=== PATIENT | female | born 1960 | race Caucasian/White ===

== ENCOUNTER 2017-12-20 05:18 | Inpatient (IN) | payer OTHER ==
[2017-12-20] MEDS ORDERED: Morphine 4 MG/ML Syringe IVPUSH PRN (06:13)
[2017-12-20] MEDS ORDERED: Sodium Chloride 0.9% 10 ML Syringe FLUSH PRN (06:13)
[2017-12-20] MEDS ORDERED: Aspirin 81 MG Tab.Chew PO ONE (06:13)
[2017-12-20] MEDS ORDERED: Ondansetron 4 MG/2 ML SDV IVPUSH ONE (06:16)
--- NOTE | 2017-12-20 06:19 | EDM.PDOC ---
<OfficerRaffaele - Last Filed: 12/20/17 06:15> ED HPI GENERAL MEDICAL PROBLEM - General Chief Complaint: Abdominal Pain Stated Complaint: VOMITING WITH PAIN UNDER RIGHT RIB AREA Time Seen by Provider: 12/20/17 06:07 Source of Information: Reports: Patient, RN Notes Reviewed History Limitations: Reports: No Limitations - History of Present Illness INITIAL COMMENTS - FREE TEXT/NARRATIVE: 57-year-old female presents to the emergency department day complaint of epigastric pain, she is a difficult historian. She states had this pain on and off for 3-4 months it does vary in location underneath her right breast to her left shoulder more in her abdominal region tonight she states the pain woke her up from sleep it is predominantly up into the chest she did have nausea and vomiting she does feel short of breath she denies any diaphoresis. Only past medical history is significant for endometrial cancer with total abdominal hysterectomy Abdominal Pain Score (Numeric/FACES): 6 - Related Data Allergies Allergy/AdvReac Type Severity Reaction Status Date / Time Penicillins Allergy Cannot Verified 12/20/17 05:49 Remember Home Meds: Home Meds NK [No Known Home Meds] 12/20/17 [History] Past Medical History HEENT History: Reports: Impaired Vision BEAUTY ADVISOR History: Reports: Endometriosis Oncologic (Cancer) History: Reports: Uterine Dermatologic History: Reports: Eczema - Infectious Disease History Infectious Disease History: Reports: Chicken Pox - Past Surgical History Female Surgical History: Reports: Hysterectomy, Salpingo-Oophorectomy Social & Family History - Tobacco Use Smoking Status *Q: Never Smoker - Caffeine Use Caffeine Use: Reports: Coffee - Recreational Drug Use Recreational Drug Use: No ED ROS GENERAL - Review of Systems Review Of Systems: See Below Constitutional: Reports: No Symptoms HEENT: Reports: No Symptoms Respiratory: Reports: Shortness of Breath. Denies: Cough, Sputum Cardiovascular: Reports: Chest Pain, Blood Pressure Problem GI/Abdominal: Reports: Abdominal Pain, Nausea, Vomiting : Reports: No Symptoms Musculoskeletal: Reports: No Symptoms Skin: Reports: No Symptoms Neurological: Reports: No Symptoms ED EXAM, GENERAL - Physical Exam Exam: See Below Free Text/Narrative:: General: Obese female, not in any distress, alert and oriented x3 HEENT: head is atraumatic normocephalic, eyes pupils equal round reactive to light, sclera clear no conjunctivitis appreciated. Ears tympanic membranes clear and smith landmarks and light reflex are present bilaterally canals are clear. Nose no septal deviation, nares are clear, no blood present. Mouth mucosa is moist and pink no erythema or exudate noted in soft palate, tongue is midline uvula is midline, dentition is intact. Neck: Supple no thyromegaly no tracheal deviation. Nodes: Cervical nodes subclavicular nodes nontender no palpable lymphadenopathy noted. Lungs: clear to auscultation bilaterally with symmetrical respirations, no adventitious noise appreciated. CV: Regular rate and rhythm S1 and S2 appreciated no murmurs rubs or gallops noted. Abdomen: Soft, tender epigastric region, obese, no palpable masses or organomegaly appreciated, no distention no guarding bowel sounds are present, . Neuro: Cranial nerves II through XII grossly intact Skin: Warm and dry, intact Extremities: No lower extremity edema appreciated, Course - Vital Signs Last Recorded V/S: Last Vital Signs Temp 97.7 F 12/20/17 05:59 Pulse 92 12/20/17 06:42 Resp 12 12/20/17 07:50 BP 126/84 12/20/17 07:50 Pulse Ox 99 12/20/17 07:50 - Orders/Labs/Meds Orders: Active Orders 24 hr Category Date Time Status Cardiac Monitoring [RC] .As Directed Care 12/20/17 06:13 Active EKG Documentation Completion [RC] ASDIRECTED Care 12/20/17 06:15 Active Peripheral IV Care [RC] . DIRECTED Care 12/20/17 06:15 Active Abdomen Pelvis w Cont [CT] Stat Exams 12/20/17 07:05 Taken Chest 1V Frontal [CR] Stat Exams 12/20/17 06:14 Taken CULTURE ANAEROBIC [RM] Routine Lab 12/20/17 10:45 Results CULTURE WOUND + SMEAR [RM] Routine Lab 12/20/17 10:45 Results Iopamidol [Isovue-300 (61%)] Med 12/20/17 07:11 Active 150 ml IV . DIRECTED PRN Ketamine [Ketalar] Med 12/20/17 10:00 Active 40 mg IV ASDIRECTED Morphine Med 12/20/17 06:13 Active 4 mg IVPUSH Q10M PRN Nitroglycerin [Nitrostat] Med 12/20/17 06:13 Active 0.4 mg SL Q5M PRN Ropivacaine [Naropin 0.5%] 59 ml Med 12/20/17 10:00 Active Dexamethasone 8 mg EPINEPHrine [Adrenalin] 0.4 mg Sodium Chloride 0.9% [Normal Saline] 18.6 ml NERVRT ASDIRECTED Sodium Chloride 0.9% [Normal Saline] 85 ml Med 12/20/17 07:15 Active IV ASDIRECTED Sodium Chloride 0.9% [Saline Flush] Med 12/20/17 06:13 Active 10 ml FLUSH ASDIRECTED PRN Peripheral IV Insertion Adult [OM.PC] Stat Oth 12/20/17 06:13 Ordered Saline Lock Insert [OM.PC] Stat Oth 12/20/17 06:13 Ordered EKG 12 Lead [EK] Stat Ther 12/20/17 06:14 Ordered Medication Orders Ropivacaine 59 ml/Dexamethasone 8 mg/Epinephrine HCl 0.4 mg/ Sodium Chloride 18.6 ml 0 ml NERVRT ASDIRECTED SHAHBAZ Last Admin: 12/20/17 10:03 Dose: 100 syringe Sodium Chloride (Normal Saline) 85 mls @ 3.5 mls/sec IV ASDIRECTED [facility] Last Admin: 12/20/17 07:42 Dose: 3.5 mls/sec Iopamidol (Isovue-300 (61%)) 150 ml IV . DIRECTED PRN PRN Reason: RADIOLOGY EXAM Stop: 12/21/17 07:12 Last Admin: 12/20/17 07:42 Dose: 150 ml Ketamine HCl (Ketalar) 40 mg IV ASDIRECTED [facility] Morphine Sulfate (Morphine) 4 mg IVPUSH Q10M PRN PRN Reason: Chest Pain Stop: 12/21/17 06:14 Last Admin: 12/20/17 06:44 Dose: 4 mg Nitroglycerin (Nitrostat) 0.4 mg SL Q5M PRN PRN Reason: Chest Pain Stop: 12/21/17 06:14 Last Admin: 12/20/17 06:35 Dose: 0.4 mg Admin: 12/20/17 06:30 Dose: 0.4 mg Sodium Chloride (Saline Flush) 10 ml FLUSH ASDIRECTED PRN PRN Reason: Keep Vein Open Last Admin: 12/20/17 06:28 Dose: 10 ml Labs: Laboratory Tests 08/26/18 08/26/18 Range/Units 06:25 06:25 WBC 7.7 (4.5-11.0) K/uL RBC 4.69 (3.30-5.50) M/uL Hgb 13.9 (12.0-15.0) g/dL Hct 42.2 (36.0-48.0) % MCV 90 (80-98) fL MCH 30 (27-31) pg MCHC 33 (32-36) % Plt Count 295 (150-400) K/uL Neut % (Auto) 81 H (36-66) % Lymph % (Auto) 11 L (24-44) % Surry % (Auto) 7 H (2-6) % Eos % (Auto) 0 L (2-4) % Baso % (Auto) 1 (0-1) % Sodium 141 (140-148) mmol/L Potassium 4.3 (3.6-5.2) mmol/L Chloride 105 (100-108) mmol/L Carbon Dioxide 28 (21-32) mmol/L Anion Gap 8.0 (5.0-14.0) mmol/L BUN 17 (7-18) mg/dL Creatinine 1.3 H (0.6-1.0) mg/dL Est Cr Clr Drug Dosing TNP Estimated GFR (MDRD) 42 L (>60) Glucose 133 H (74-106) mg/dL Calcium 9.0 (8.5-10.1) mg/dL Total Bilirubin 0.4 (0.2-1.0) mg/dL AST 24 (15-37) U/L ALT 40 (12-78) U/L Alkaline Phosphatase 77 (46-116) U/L Troponin I < 0.017 (0.000-0.056) ng/mL Total Protein 7.3 (6.4-8.2) g/dL Albumin 3.5 (3.4-5.0) g/dL Globulin 3.8 H (2.3-3.5) g/dL Albumin/Globulin Ratio 0.9 L (1.2-2.2) Lipase 112 (73-393) U/L Meds: Medications Generic Name Dose Route Start Last Admin Trade Name Freq PRN Reason Stop Dose Admin Ropivacaine 59 ml/ 0 ml 12/20/17 10:00 12/20/17 10:03 Dexamethasone 8 mg/ NERVRT 100 syringe Epinephrine HCl 0.4 mg/ Sodium ASDIRECTED SHAHBAZ Administration Chloride 18.6 ml Sodium Chloride 85 mls @ 3.5 mls/sec 12/20/17 07:15 12/20/17 07:42 Normal Saline IV 3.5 mls/sec ASDIRECTED SHAHBAZ Administration Iopamidol 150 ml 12/20/17 07:11 12/20/17 07:42 Isovue-300 (61%) IV 12/21/17 07:12 150 ml . DIRECTED PRN Administration RADIOLOGY EXAM Ketamine HCl 40 mg 12/20/17 10:00 Ketalar IV ASDIRECTED SHAHBAZ Morphine Sulfate 4 mg 12/20/17 06:13 12/20/17 06:44 Morphine IVPUSH 12/21/17 06:14 4 mg Q10M PRN Administration Chest Pain Nitroglycerin 0.4 mg 12/20/17 06:13 12/20/17 06:35 Nitrostat SL 12/21/17 06:14 0.4 mg Q5M PRN Administration Chest Pain Sodium Chloride 10 ml 12/20/17 06:13 12/20/17 06:28 Saline Flush FLUSH 10 ml ASDIRECTED PRN Administration Keep Vein Open Discontinued Medications Generic Name Dose Route Start Last Admin Trade Name Freq PRN Reason Stop Dose Admin Aspirin 324 mg 12/20/17 06:13 12/20/17 06:27 Aspirin PO 12/20/17 06:14 324 mg ONETIME ONE Administration Bupivacaine HCl/Epinephrine Bitart Confirm 12/20/17 08:58 12/20/17 10:10 Marcaine 0.5%/Epinephrine 1:200,000 Administered 12/20/17 08:59 20 ml Dose Administration 50 ml .ROUTE .STK-MED ONE Dexamethasone Confirm 12/20/17 09:12 Dexamethasone Administered 12/20/17 09:13 Dose 4 mg .ROUTE .STK-MED ONE Fentanyl Confirm 12/20/17 09:11 Sublimaze Administered 12/20/17 09:12 Dose 250 mcg .ROUTE .STK-MED ONE Fentanyl Confirm 12/20/17 11:01 Sublimaze Administered 12/20/17 11:02 Dose 100 mcg .ROUTE .STK-MED ONE Glycopyrrolate Confirm 12/20/17 09:12 Robinul Administered 12/20/17 09:13 Dose 1 mg .ROUTE .STK-MED ONE Lactated Ringer's 1,000 mls @ 999 mls/hr 12/20/17 07:05 12/20/17 07:48 Ringers, Lactated IV 12/20/17 08:05 999 mls/hr BOLUS ONE Administration Cefoxitin Sodium 2 gm/ Sodium 50 mls @ 100 mls/hr 12/20/17 08:24 12/20/17 08: 39 Chloride IV 12/20/17 08:53 100 mls/hr ONETIME ONE Administration Aztreonam 1,000 mg/ Sodium 50 mls @ 100 mls/hr 12/20/17 09:02 Chloride IV 12/20/17 09:31 ONETIME ONE Aztreonam/Dextrose 1 gm/ 50 mls @ 100 mls/hr 12/20/17 09:15 12/20/17 09:15 Premix IV 12/20/17 09:44 100 mls/hr ONETIME ONE Administration Lactated Ringer's Confirm 12/20/17 11:16 Ringers, Lactated Administered 12/20/17 11:17 Dose 1,000 mls @ as directed .ROUTE .STK-MED ONE Lactated Ringer's Confirm 12/20/17 11:16 Ringers, Lactated Administered 12/20/17 11:17 Dose 1,000 mls @ as directed .ROUTE .STK-MED ONE Neostigmine Methylsulfate Confirm 12/20/17 09:12 Neostigmine Administered 12/20/17 09:13 Dose 5 mg .ROUTE .STK-MED ONE Ondansetron HCl 4 mg 12/20/17 06:16 12/20/17 06:28 Zofran IVPUSH 12/20/17 06:17 4 mg ONETIME ONE Administration Ondansetron HCl Confirm 12/20/17 09:12 Zofran Administered 12/20/17 09:13 Dose 4 mg .ROUTE .STK-MED ONE Propofol Confirm 12/20/17 09:12 Diprivan 20 Ml Administered 12/20/17 09:13 Dose 200 mg .ROUTE .STK-MED ONE Rocuronium Jones Confirm 12/20/17 09:12 Zemuron Administered 12/20/17 09:13 Dose 50 mg .ROUTE .STK-MED ONE Succinylcholine Chloride Confirm 12/20/17 09:12 Quelicin Administered 12/20/17 09:13 Dose 200 mg .ROUTE .STK-MED ONE Departure - Departure Disposition: Admitted As Inpatient 64 Clinical Impression: Cholecystitis Abdominal pain Qualifiers: Abdominal location: upper abdomen, unspecified Qualified Code(s): R10.10 - Upper abdominal pain, unspecified <Juancho Rico - Last Filed: 12/20/17 11:36> Course - Re-Assessments/Exams Free Text/Narrative Re-Assessment/Exam: 12/20/17 09:02 Patient care except from Officer pending CT results. This did show cholelithiasis and likely cholecystitis. Discussed the results with Dr. Crockett, he'll see the patient admitted for the past, cholecystectomy. She was given 2 g of cefoxitin, followed by 1 g of Azactam prior to surgery. Departure - Departure Time of Disposition: 09:47 Condition: Fair
[2017-12-20] MEDS: Nitroglycerin 0.4 MG Tab.SL SL PRN ×2 (06:30→06:35)
[2017-12-20] MEDS ORDERED: Lactated Ringers 1,000 ML IV ONE (07:05)
[2017-12-20] MEDS ORDERED: Iopamidol 612 MG/ML 150 ML Bottle IV PRN (07:11)
[2017-12-20] MEDS ORDERED: cefOXitin 2 GM in Sodium Chloride 0.9% 50 ML IV ONE (08:24)
[2017-12-20] MEDS ORDERED: Bupivacaine 0.5%/EPINEPHrine 1:200,000 50 ML MDV ONE (08:58)
[2017-12-20] MEDS ORDERED: fentaNYL 250 MCG/5 ML SDV ONE (09:11)
[2017-12-20] MEDS ORDERED: Propofol 200 MG/20 ML SDV ONE (09:12)
[2017-12-20] MEDS ORDERED: Dexamethasone 4 MG/ML SDV ONE (09:12)
[2017-12-20] MEDS ORDERED: Glycopyrrolate 0.2 MG/ML 5 ML MDV ONE (09:12)
[2017-12-20] MEDS ORDERED: Neostigmine Methylsulfate 1 MG/ML 5 ML Syringe ONE (09:12)
[2017-12-20] MEDS ORDERED: Ondansetron 4 MG/2 ML SDV ONE (09:12)
[2017-12-20] MEDS ORDERED: Rocuronium 50 MG/5 ML Vial ONE (09:12)
[2017-12-20] MEDS ORDERED: Succinylcholine 200 MG/10 ML MDV ONE (09:12)
[2017-12-20] MEDS ORDERED: Aztreonam/Dextrose-Water 1 GM in Premix Bag 1 BAG IV ONE (09:15)
[2017-12-20] MEDS ORDERED: Ketamine 500 MG/5 ML MDV IV SCH (10:00)
[2017-12-20] MEDS ORDERED: Ropivacaine 59 ML, Dexamethasone 8 MG, EPINEPHrine 0.4 MG, Sodium Chloride 0.9% 18.6 ML NERVRT SCH ×4 (10:00)
[2017-12-20] MEDS ORDERED: fentaNYL 100 MCG/2 ML SDV ONE (11:01)
[2017-12-20] MEDS ORDERED: Lactated Ringers 1,000 ML ONE ×2 (11:16)
[2017-12-20] MEDS ORDERED: HYDROmorphone/Normal Saline 15 MG/30 ML PCA IV PRN (11:53)
[2017-12-20] MEDS ORDERED: Ondansetron 4 MG/2 ML SDV IVPUSH PRN (12:00)
[2017-12-20] MEDS ORDERED: Labetalol 20 MG/4 ML Syringe IVPUSH PRN (12:00)
[2017-12-20] MEDS ORDERED: Naloxone 0.4 MG/ML SDV IVPUSH PRN (12:00)
[2017-12-20] MEDS: Acetaminophen/HYDROcodone 325-5 MG Tab PO PRN ×3 (13:58→22:09)
[2017-12-20] MEDS ORDERED: Pantoprazole 40 MG Vial IVPUSH SCH (14:00)
[2017-12-20] MEDS: cefOXitin 2 GM in Sodium Chloride 0.9% 50 ML IV SCH ×2 (16:16→22:09)
[2017-12-20] MEDS: Aztreonam/Dextrose-Water 1 GM in Premix Bag 1 BAG IV SCH (17:05)
[2017-12-20] MEDS: Dextrose 5%-Lactated Ringers 1,000 ML IV SCH (21:00)
[2017-12-21] MEDS: Aztreonam/Dextrose-Water 1 GM in Premix Bag 1 BAG IV SCH ×2 (02:22→09:21)
[2017-12-21] MEDS: Acetaminophen/HYDROcodone 325-5 MG Tab PO PRN ×3 (02:23→09:18)
[2017-12-21] MEDS: cefOXitin 2 GM in Sodium Chloride 0.9% 50 ML IV SCH ×2 (04:03→09:22)
[2017-12-21] MEDS: Dextrose 5%-Lactated Ringers 1,000 ML IV SCH (08:51)
--- NOTE | 2017-12-21 09:30 | CR ---
CHEST: Portable CLINICAL HISTORY:Chest and right upper quadrant pain COMPARISON:None FINDINGS: Heart size and pulmonary vascularity are normal. Lung cortez are clear. IMPRESSION: No acute cardiopulmonary process
[2017-12-21] MEDS ORDERED: Ciprofloxacin 500 MG Tab PO ONE (09:45)
--- NOTE | 2017-12-23 10:42 | OR ---
DATE OF PROCEDURE: 12/20/2017 PREOPERATIVE DIAGNOSIS: Acute cholecystitis. POSTOPERATIVE DIAGNOSES: 1. Acute cholecystitis with pericholecystic abscess. 2. Marked hepatomegaly. 3. Incarcerated umbilical hernia. OPERATIVE PROCEDURES: Diagnostic laparoscopy with lysis of adhesions and: 1. Cholecystectomy (50738). 2. Drainage of pericholecystic abscess (24004). 3. Needle liver biopsy (83331). 4. Repair of incarcerated umbilical hernia. ANESTHESIA: General. INDICATIONS FOR PROCEDURE: A 57-year-old visiting from the [place], [place] area, presenting with a picture of an acute cholecystitis. The plan is to proceed with a diagnostic laparoscopy, laparotomy if necessary, and cholecystectomy with other procedures as indicated. Potential risks including bleeding, infection, injury to underlying viscera, possible migration of stones in the common bile duct requiring additional procedures for correction were all reviewed, and the patient wishes to proceed. DETAILS OF PROCEDURE: The patient was taken to the operating room and placed in a supine position. After general endotracheal anesthesia was induced, the abdomen was prepped and draped. A transverse epigastric incision was made and the peritoneal cavity entered under direct vision with an Optiview trocar and inflated to 15 mmHg pressure with CO2. Laparoscope was then reinserted. No underlying trocar insertion site injuries were seen. Following this, a transverse subumbilical incision was made. The patient was noted to have an incarcerated umbilical hernia. The hernia sac was dissected free at this point, and the 12-mm trocar placed easily through the defect. Two additional 5 mm trocars were then placed in the right subcostal area. Bilateral transversus abdominis plane blocks in the subcostal location were then placed using the standard solution. The patient was noted to have severe acute cholecystitis. As the gallbladder was lifted upward, an inflammatory purulent pericholecystic fluid collection was noted. This was evacuated and cultures obtained. The patient was also noted to have marked hepatomegaly with the liver being grossly somewhat fatty infiltrated. At this point, dissection began on the gallbladder neck and continued around the gallbladder neck/cystic duct junction. Once that area was well delineated, it was felt that the gallbladder neck/cystic duct junction, as well as the now visualized cystic artery, would be best taken with surgical bobbi due to the amount of edema and friability of the tissues. These were then divided jointly with a ARTURO purple load. The gallbladder was then dissected off the gallbladder bed using Harmonic scalpel and delivered through the epigastric trocar site, which needed to be enlarged somewhat in order to retrieve the specimen. Max-Cut needle biopsies were then obtained from the right lobe of the liver. Minimal bleeding from the biopsy sites was controlled with electrocautery. At that point, no bile leaks or additional problems were noted. A Rolf-Calloway drain was taken out through the right lateral trocar site. The camera was then brought back up to the epigastric site, and using the laparoscopic suture passer, the umbilical hernia was closed with a transverse orientation regarding the closure. Once these were all in place, the trocars were removed, the peritoneal cavity was deflated, and the epigastric site also was closed with some 0 Vicryl stitch at the fascia level. The epigastric site skin and subcutaneous tissue were packed open, given the inherent contamination, and the remaining trocar sites were then closed with a 4-0 Vicryl skin stitch. Dressing was applied. The patient was taken to the recovery room in a satisfactory condition. There were no evident complications. Dangelo Crockett MD /[id number]
--- NOTE | 2017-12-23 11:57 | DISCH ---
FINAL DIAGNOSES: 1. Acute cholecystitis with pericholecystic abscess. 2. Marked hepatomegaly. 3. Obesity. 4. Incarcerated umbilical hernia. 5. Renal insufficiency. 6. New diagnosis of impaired fasting glucose (hemoglobin A1c 6.1). OPERATIVE PROCEDURES: Diagnostic laparoscopy with lysis of adhesions and; 1. Cholecystectomy. 2. Drainage of pericholecystic abscess. 3. Max-Cut needle liver biopsy. 4. Repair of incarcerated umbilical hernia. These were all done on 12/20/2017. HOSPITAL COURSE: This 57-year-old is visiting from [facility], presented with an acute cholecystitis. On the day of admission, after initial workup and antibiotic administration, she underwent the above procedures. She was noted perioperatively to have some elevated blood sugars hemoglobin A1c, which came back at 6.1 consistent with an impaired fasting glucose or a prediabetes status. She also, on admission, was noted to have a creatinine of 1.3 and on postop day #1, this was down to 1.1, but still with a creatinine clearance of only around 50, indicative of some degree of renal insufficiency as well. She was also noted to have quite marked hepatomegaly and overall probably has a significant degree of metabolic syndrome. Biopsies on the liver were obtained and are pending. Postoperatively, no major problems were noted. She will be discharged home with Percocet as needed for pain. The epigastric trocar site was packed open and this dressing was removed on postop day #1, and should be dressing that with 4x4s. Otherwise, she will continue on usual home medications plus the Percocet as needed for pain. The patient will be instructed to follow up with her personal physician in the [place], [place] area, in a day or two after Labor Day, i.e. in about a week.
== END 2017-12-21 12:00 | disposition home or self-care (01) | DRG 418 ==
LOC: JP.ED 05:18 → JP.SDS 08:33 → JP.MS 09:48
PROVIDERS: ADMIT Surgery; ATTEND Surgery
PROC: 0FT44ZZ Resection of Gallbladder, Percutaneous Endoscopic Approach (ICD-10-PCS; principal; 2017-12-20)
PROC: 0W9G4ZX Drainage of Peritoneal Cavity, Percutaneous Endoscopic Approach, Diagnostic (ICD-10-PCS; 2017-12-20)
PROC: 0FB14ZX Excision of Right Lobe Liver, Percutaneous Endoscopic Approach, Diagnostic (ICD-10-PCS; 2017-12-20)
PROC: 0WQF4ZZ Repair Abdominal Wall, Percutaneous Endoscopic Approach (ICD-10-PCS; 2017-12-20)
PROC: 3E0T3BZ Introduction of Anesthetic Agent into Peripheral Nerves and Plexi, Percutaneous Approach (ICD-10-PCS; 2017-12-20)
DX: K81.0 Acute cholecystitis (principal); K42.0 Umbilical hernia with obstruction, without gangrene; Z68.41 Body mass index [BMI] 40.0-44.9, adult; R16.0 Hepatomegaly, not elsewhere classified; K76.0 Fatty (change of) liver, not elsewhere classified; Z85.42 Personal history of malignant neoplasm of other parts of uterus; H54.7 Unspecified visual loss; Z88.0 Allergy status to penicillin; Z90.710 Acquired absence of both cervix and uterus; Z90.722 Acquired absence of ovaries, bilateral; E66.01 Morbid (severe) obesity due to excess calories; N28.9 Disorder of kidney and ureter, unspecified; R73.02 Impaired glucose tolerance (oral)
CPT/HCPCS: 36415; 71045; 71045-26; 74177; 80053; 83036; 83690; 83735; 84100; 84484; 85025; 85027; 87070; 87075; 87205; 93005; 96361; 96365; 96367; 96375; 99285-25; A9270-GY; C9113; J0171; J0330; J0694; J1100; J2270; J2405; J2704; J2710; J2795; J3010; J3490; J7030; J7042; J7050; J7120